=== PATIENT | male | born 2000 | race Caucasian/White ===

== ENCOUNTER 2020-01-31 15:16 | Emergency (ER) | payer OTHER, SELFPAY ==
--- NOTE | ~2020-01-31 | XR_ITS ---
EXAMINATION: XR chest 1V portable EXAM DATE: 01/31/2020 17:13 INDICATION: Fever. TECHNIQUE: Portable AP frontal chest x-ray was obtained. There is no prior study for comparison. FINDINGS: The lungs are clear. There are no pleural effusions. The cardiomediastinal silhouette is within normal limits. There is no pneumothorax suspected. The bones and soft tissues are unremarkab le. IMPRESSION: No acute cardiopulmonary findings. Reviewed, dictated and finalized at location A.
[2020-01-31 15:30] VITALS: BP 123/77; PULSE 68; RESP 20; TEMP 37.1; O2SAT 97
--- NOTE | 2020-01-31 15:38 | ED.ABDPAIN ---
HPI - Abdominal Pain General Chief Complaint: Fever Stated Complaint: FEVER Time Seen by Provider: 01/31/20 15:36 History of Present Illness HPI narrative: Pt c/o abd pain, epigastric, mild, now resolved, burning, non radiating started a few hours ago. Pt was sent here by his employer due to fever that he didn't know he had until his employer check his temperature. Pt denied any symptoms today and didn't know why he was sent home and to go to the ER. Denies n/v/d. Denies cp or sob. Afebrile in the ER. Pertinent past history: none Exacerbating factors: nothing Relieving factors: nothing Associated symptoms: denies other symptoms Related Data Home Medications Medication Instructions Recorded Confirmed dolutegravir [Tivicay] 50 mg PO DAILY 01/31/20 01/31/20 emtricitabine-tenofovir alafen 1 tablet PO DAILY 01/31/20 01/31/20 [Descovy] Allergies Allergy/AdvReac Type Severity Reaction Status Date / Time No Known Allergies Allergy Verified 01/31/20 15:35 Review of Systems Review of Systems: All systems reviewed & are unremarkable except as noted in HPI and below Constitutional: Constitutional: Denies body ache(s), Denies chills, Denies excessive sweating, Denies fatigue, Denies headache(s), Denies lethargy, Denies malaise, Denies weakness and Denies weight loss Eyes: Eyes: Denies blurry vision, Denies change in vision and Denies loss of vision ENT: Denies dizziness, Denies ear discharge, Denies headache(s), Denies lip swelling, Denies epistaxis, Denies nasal congestion, Denies neck pain, Denies throat swelling and Denies tongue swelling Cardiovascular: Cardiovascular: Denies chest pain, Denies chest pain at rest, Denies chest pain with activity, Denies diaphoresis, Denies rapid heart rate, Denies edema, Denies irregular heart rhythm, Denies lightheadedness, Denies palpitations, Denies dyspnea and Denies dyspnea on exertion Respiratory: Respiratory: Denies chest congestion, Denies cough, Denies hemoptysis, Denies dyspnea and Denies dyspnea on exertion Gastrointestinal: Gastrointestinal: Denies melena, Denies hematochezia, Denies diarrhea, Denies nausea, Denies vomiting and Denies hematemesis Musculoskeletal: Musculoskeletal: Denies abnormal gait, Denies deformity, Denies joint swelling, Denies limited range of motion, Denies neck pain and Denies numbness Neurologic: Denies Abnormal speech present, Denies abnormal gait, Denies confusion, Denies dizziness, Denies headache(s), Denies focal weakness, Denies loss of vision, Denies numbness, Denies Other visual disturbances, Denies Sensory deficit (Neuro) and Denies weakness Psychiatric: Psychiatric: Denies confusion, Denies depression, Denies auditory hallucinations, Denies homicidal ideation and Denies suicidal ideation Endocrine: Endocrine: Denies cold intolerance, Denies excessive sweating, Denies fatigue, Denies heat intolerance and Denies palpitations Hematologic/Lymphatic: Hematologic/Lymphatic: Denies easy bleeding and Denies easy bruising Allergic/Immunologic: Allergic/Immunologic: Denies lip swelling, Denies throat swelling and Denies tongue swelling PMFSH Social History Social History Gender identity (if verbalized by the patient): Male Exam Const: General: cooperative, healthy appearing, comfortable, no acute distress, well developed, alert and awake; No confusion Orientation/consciousness: oriented to person, oriented to place, oriented to time, patient oriented x3 and No confusion Limitations: no limitations HENMT: Head: normal to inspection, normocephalic and atraumatic Ears: hearing grossly normal bilaterally, TM normal on the right and TM normal on the left General nose exam: Normal external nose present, Normal nares present and No nasal discharge present Face and sinus: normal facial exam Mouth: Yes Normal oral and palatal mucosa present, Yes lip normal, Yes tongue normal and Yes oropharynx normal Throat: posterior oropharynx normal, tonsils norm
[2020-01-31 15:56] LABS: Basophils Percent Auto 0.3 % (0.2-1.2); Eosinophils Absolute Auto 0.1 K/mm3 (0-0.3); Eosinophils Percent Auto 1.1 % (0-4.4); Hematocrit 44.7 % (42.0-52.0); Hemoglobin 14.6 g/dL (14.0-18.0); Immature Granulocyte Absolute 0.02 K/mm3 (0.00-0.031); Immature Granulocyte Percent A 0.3 % (0-0.5); Lymphocytes Absolute Auto 3.18 K/mm3 (0.9-3.2); Lymphocytes Percent Auto 49.4 % (18.3-44.2); Mean Corpuscular HGB Conc 32.7 g/dl (32-36); Mean Corpuscular Hemoglobin 29.1 pg (26-34); Mean Corpuscular Volume 89.2 fl (80-100); Mean Platelet Volume 10.7 fl (7.4-10.4); Monocytes Absolute Auto 0.5 K/mm3 (0.1-0.6); Monocytes Percent Auto 7.8 % (2.6-8.5); Neutrophils Absolute Auto 2.7 K/mm3 (1.3-6.7); Neutrophils Percent Auto 41.1 % (45.5-73.1); Platelet Count Result 207 k/mm3 (150-375); Red Blood Count 5.01 M/mm3 (4.6-6.20); Red Cell Distribution Width 13.9 % (11.5-14.5); White Blood Count 6.4 K/mm3 (4.5-10.0)
[2020-01-31] MEDS: SODIUM CHLORIDE 0.9% IV 1,000 ML 999 ML IV CONT (15:56)
[2020-01-31 15:58] LABS: Add Urine Microscopic? NO; Appearance Urine Clear (Clear); Bilirubin Urine Negative (Negative); Blood Urine Negative (Negative); Color Urine Yellow (Yellow); Glucose Urine UA Negative (Negative); Ketones Urine Negative (Negative); Leukocyte Esterase Ur Negative LEU/UL (Negative); Nitrate Urine Negative (Negative); Protein Urine Negative (Negative); Specific Grav Ur 1.015 (1.001-1.035); Urobilinogen Urine Negative mg/dL (<2.0)
[2020-01-31 16:08] LABS: Lactic Acid Reflex 0.6 mmol/L (0.7-2.1)
[2020-01-31 16:42] LABS: Alanine Aminotransferase 10 U/L (4-50); Albumin Level 3.6 g/dL (3.5-5.1); Alkaline Phosphatase 59 U/L (38-126); Aspartate Amino Transferase 19 U/L (17-59); Bilirubin,Total 0.5 mg/dL (0.2-1.3); Blood Urea Nitrogen 10 mg/dL (9-20); Calcium 8.3 mg/dL (8.4-10.2); Carbon Dioxide 28 mmol/L (22-30); Chloride 106 mmol/L (98-107); Estimated CRCL calculation 102 ml/min; Estimated Glomerular Filt Rate > 60; Glucose 82 mg/dL (75-110); Lipase 43 U/L (23-300); Potassium 3.5 mmol/L (3.4-5.0); Sodium 138 mmol/L (137-145)
[2020-01-31 17:50] VITALS: BP 118/72; PULSE 80; RESP 16; O2SAT 99
[2020-02-02 08:03] LABS: SARS-CoV-2 RNA PCR Negative
== END 2020-01-31 17:55 | disposition home or self-care (01) ==
PROVIDERS: Emergency Provider Emergency Medicine
DX: K29.00 Acute gastritis without bleeding (principal); R50.9 Fever, unspecified; Z20.828 Contact with and (suspected) exposure to other viral communicable diseases
CPT/HCPCS: 36415; 71045; 80053; 81003; 83605; 83690; 85025; 87635; 96360; 99283; C9803; J7030; U0003

== ENCOUNTER 2020-11-06 18:55 | Emergency (ER) | payer OTHER, SELFPAY ==
[2020-11-06 19:17] VITALS: BP 129/69; PULSE 63; RESP 16; TEMP 37.3; O2SAT 99
--- NOTE | 2020-11-06 20:03 | ED.GENADULT ---
HPI - General Adult General Chief complaint: Unspecified Stated complaint: not feeling well, covid + Time Seen by Provider: 11/06/20 19:23 Source: patient Mode of arrival: ambulatory Limitations: no limitations History of Present Illness HPI narrative: A 20-year-old male comes into the emergency department tonight with complaints of fever, chills and body aches. Patient states he was recently diagnosed with Covid. He states that his boss also had an told him he needed to come into the hospital to get checked out before got worse. Patient is denying any other symptoms at this time. He states that he feels well just tired. Related Data Home Medications Medication Instructions Recorded Confirmed dolutegravir [Tivicay] 50 mg PO DAILY 01/31/20 01/31/20 emtricitabine-tenofovir alafen 1 tablet PO DAILY 01/31/20 01/31/20 [Descovy] Allergies Allergy/AdvReac Type Severity Reaction Status Date / Time No Known Allergies Allergy Verified 11/06/20 19:25 Review of Systems Review of Systems: Narrative: CONSTITUTIONAL: Endorses chills, malaise and fatigue. EYES: Denies visual changes, redness, or discharge. ENT: Denies rhinorrhea, congestion, sore throat, or otalgia. CARDIOVASCULAR: Denies chest pain, palpitations, or edema. RESPIRATORY: Denies cough or dyspnea. GASTROINTESTINAL: Denies abdominal pain, nausea, vomiting, or diarrhea. GENITOURINARY: Denies dysuria or hematuria. SKIN: Denies rash or itching. MUSCULOSKELETAL: Denies back pain, joint pain, or myalgia. NEUROLOGIC: Denies headache, numbness, dizziness, or weakness. PSYCHIATRIC: Denies anxiety or depression. [facility] Social History Social History Gender identity (if verbalized by the patient): Male Exam Narrative: Exam Narrative: GENERAL: Well-appearing, well-nourished, and in no acute distress. HEAD: Normocephalic, atraumatic. EYES: PERRLA and EOMI. ENT: Nares clear, no rhinorrhea or epistaxis. Mucous membranes moist. Oropharynx without tonsillar hypertrophy exudate or other lesions. Bilateral TMs pearly sparks nonbulging NECK: Supple. No adenopathy or masses. No carotid bruits or JVD CHEST: Clear to auscultation. No respiratory distress. No wheezes rales or rhonchi HEART: Regular rate and rhythm. No murmur heard. Normal peripheral pulses. ABDOMEN: Soft, nontender, nondistended, normal active bowel sounds. EXTREMITIES: Normal range of motion. No edema. SKIN: Warm, dry, no rash. NEURO: No focal deficits. Alert and oriented x3. PSYCH: Normal mood and affect. Course Vital Signs Vital signs: Vital Signs Temperature 37.3 C 11/06/20 19:17 Pulse Rate 63 11/06/20 19:17 Respiratory Rate 16 11/06/20 19:17 Blood Pressure 129/69 11/06/20 19:17 Pulse Oximetry 99 11/06/20 19:17 Temperature 37.3 C 11/06/20 19:17 Pulse Rate 63 11/06/20 19:17 Respiratory Rate 16 11/06/20 19:17 Blood Pressure 129/69 11/06/20 19:17 Pulse Oximetry 99 11/06/20 19:17 Medical Decision Making MDM Narrative Medical decision making narrative: In brief this is a 20-year-old male who presented to the ED [facility] for complaints of Covid. Patient does also note that he is HIV positive. He states that his CD4 counts have been high and viral load has been less than 20. He states that the only reason he came in was because his boss convinced him that he needed to. He has no complaints at this time would just like to go home and rest. Vital Signs Vital Signs: Vital Signs Temperature 37.3 C 11/06/20 19:17 Pulse Rate 63 11/06/20 19:17 Respiratory Rate 16 11/06/20 19:17 Blood Pressure 129/69 11/06/20 19:17 Pulse Oximetry 99 11/06/20 19:17 Temperature 37.3 C 11/06/20 19:17 Pulse Rate 63 11/06/20 19:17 Respiratory Rate 16 11/06/20 19:17 Blood Pressure 129/69 11/06/20 19:17 Pulse Oximetry 99 11/06/20 19:17 Discharge Plan Discharge Clinical Impression: COVID-19 [place]
[2020-11-06 20:15] VITALS: BP 106/57; PULSE 73; RESP 18; O2SAT 97
== END 2020-11-06 20:20 | disposition home or self-care (01) ==
PROVIDERS: Emergency Provider Emergency Medicine
DX: U07.1 COVID-19 (principal)
CPT/HCPCS: 99281